=== PATIENT | female | born 1980 | race Caucasian/White ===

== ENCOUNTER 2017-11-14 19:36 | Emergency (ER) | payer OTHER ==
[~2017-11-14] VITALS: Ht 157.5 cm; Wt 70.3 kg
[2017-11-14 19:53] VITALS: BP_SYST 116
[2017-11-14 20:44] VITALS: BP_SYST 120
== END 2017-11-14 20:44 | disposition home or self-care (01) ==
LOC: SED 19:36
DX: S61.012A Laceration without foreign body of left thumb without damage to nail, initial encounter (principal); W26.0XXA Contact with knife, initial encounter; Y93.89 Activity, other specified; Y92.89 Other specified places as the place of occurrence of the external cause; Y99.8 Other external cause status
CPT/HCPCS: 99283